=== PATIENT | female | born 1955 | race Caucasian/White ===

== ENCOUNTER 2017-02-05 12:35 | Emergency (ER) | payer BC ==
[~2017-02-05] VITALS: Ht 175.3 cm; Wt 88.4 kg
[~2017-02-05 12:35] MED LIST: ASPIRIN81 M1 PO; AUGMENTIN 875-1 EACH PO; BUTALB-ACETAMI1 EACH PO; Ecotrin PO; LOPRESSOR12.5 MG PO; LOPRESSOR25 MG PO; MELOXICAM15 MG PO; PROZAC20 MG PO; RELAFEN500 MG PO; ZOCOR20 MG PO
[2017-02-05 14:41] LABS: MCH 30.1 PG (29.0-34.0); MCHC 33.9 G/DL (30.0-36.0); MCV 88.6 FL (83-99); MEAN PLAT.VOLUME 11.4 uM^3 (9.5-12.4); PLATELET COUNT 216 K/uL (156-360); RBC DIS.WIDTH-CV 12.7 % (11.8-14.6); RED BLOOD COUNT 4.29 M/uL (3.80-5.20); WHITE BLOOD COUNT 7.3 K/uL (4.1-10.2)
[2017-02-05 14:53] LABS: CHLORIDE 111 mEq/L (99-109); POTASSIUM 3.7 mEq/L (3.7-5.4); SODIUM 143 mEq/L (136-147)
[2017-02-05 14:55] LABS: GLUCOSE 93 mg/dL (70-99)
[2017-02-05 14:57] LABS: ANION GAP 9 MEQ/L (2-14)
[2017-02-05 14:59] LABS: GFR ESTIMATE (CALCULATED) > 59 mL/min/
[2017-02-05 15:00] LABS: UREA NITROGEN (BUN) 14 mg/dL (9-23)
[2017-02-05] MEDS ORDERED: OSTEO BI-FLEX1 EAC1 PO (15:50)
[2017-02-05] MEDS ORDERED: FISH OIL 1,001000 M2 PO (15:51)
[2017-02-05] MEDS ORDERED: CENTRUM SILVER1 EAC3 PO (15:52)
[2017-02-05] MEDS ORDERED: CALCIUM 500 MG1 EACH PO (15:52)
[2017-02-05] MEDS ORDERED: RELAFEN500 M1 PO (15:54)
[2017-02-05] MEDS ORDERED: ELAVIL50 MG PO (15:55)
[2017-02-05] MEDS ORDERED: NASONEX17 GM BOTH NARES (15:57)
[2017-02-05] MEDS ORDERED: COZAAR25 MG PO (15:57)
[2017-02-05] MEDS ORDERED: SPRIX1 EACH BOTH NARES (15:58)
[2017-02-05] MEDS ORDERED: REGLAN10 MG PO (15:59)
[2017-02-05] MEDS ORDERED: FIORICET,ESG1 TABLET PO (17:32)
[2017-02-05 17:52] VITALS: BP 150/92
== END 2017-02-05 17:54 | disposition home or self-care (01) ==
LOC: EME 12:35
PROVIDERS: Physician Assistant
DX: G43.909 Migraine, unspecified, not intractable, without status migrainosus (principal); R11.2 Nausea with vomiting, unspecified
CPT/HCPCS: 70450; 71020; 80048; 85027; 93005; 99281; 99284; J1885; J2765; J3010; J7030

== ENCOUNTER 2017-02-08 07:07 | Emergency (ER) | payer BC ==
[~2017-02-08] VITALS: Ht 175.3 cm; Wt 88.9 kg
[~2017-02-08 07:07] MED LIST changes: +CALCIUM 500 MG1 EACH PO; +CENTRUM SILVER1 EAC3 PO; +COZAAR25 MG PO; +ELAVIL50 MG PO; +FIORICET,ESG1 TABLET PO; +FISH OIL 1,001000 M2 PO; +NASONEX17 GM BOTH NARES; +OSTEO BI-FLEX1 EAC1 PO; +REGLAN10 MG PO; +RELAFEN500 M1 PO; +SPRIX1 EACH BOTH NARES
[2017-02-08 08:10] LABS: ADD MIUA? NO; BILIRUBIN NEGATIVE; BLOOD NEGATIVE; COLOR STRAW ((YELLOW)); GLUCOSE (STRIP) NEGATIVE; KETONES NEGATIVE; LEUKOCYTES NEGATIVE; NITRITE NEGATIVE; PROTEIN (STRIP) NEGATIVE; SPECIFIC GRAVITY 1.004 (1.000-1.030); UROBILINOGEN 0.2 MG/DL (0.2-1.0)
[2017-02-08 09:30] VITALS: BP 142/90
== END 2017-02-08 09:47 | disposition home or self-care (01) ==
LOC: EME 07:07
PROVIDERS: Nurse Practitioner Family
DX: G43.909 Migraine, unspecified, not intractable, without status migrainosus (principal); E78.5 Hyperlipidemia, unspecified; I10 Essential (primary) hypertension; Z86.73 Personal history of transient ischemic attack (TIA), and cerebral infarction without residual deficits
CPT/HCPCS: 81003; 93005; 99281; 99285; J1100; J1200; J1885; J2765; J7030

== ENCOUNTER 2017-10-06 18:05 | Emergency (ER) | payer BC ==
[~2017-10-06] VITALS: Ht 175.3 cm; Wt 88.6 kg
[2017-10-06 18:48] LABS: HEMATOCRIT 41.2 % (36.0-46.0); HEMOGLOBIN 13.8 G/DL (11.9-15.5); MCH 30.3 PG (29.0-34.0); MCHC 33.5 G/DL (30.0-36.0); MCV 90.4 FL (83-99); PLATELET COUNT 256 K/uL (156-360); RBC DIS.WIDTH-CV 13.2 % (11.8-14.6); RBC DIS.WIDTH-SD 43.5 % (39-53); RED BLOOD COUNT 4.56 M/uL (3.80-5.20); WHITE BLOOD COUNT 7.3 K/uL (4.1-10.2)
[2017-10-06 19:03] LABS: ALBUMIN 4.4 G/DL (3.2-4.8); CHLORIDE 103 MEQ/L (99-109); POTASSIUM 3.8 MEQ/L (3.7-5.4); SODIUM 138 MEQ/L (136-147); TOTAL BILIRUBIN 0.3 MG/DL (0.0-1.0)
[2017-10-06 19:09] LABS: ALKALINE PHOSPHATASE 55 IU/L (3-129); ALT (GPT) 14 IU/L (3-49); AST (GOT) 14 IU/L (2-34); GFR ESTIMATE (CALCULATED) > 59 mL/min/; GLUCOSE 130 mg/dL (70-99); TOTAL PROTEIN 7.5 G/DL (6.4-8.3); UREA NITROGEN (BUN) 12 mg/dL (9-23)
[2017-10-06 21:59] LABS: APPEARANCE CLEAR ((CLEAR)); BILIRUBIN NEGATIVE; BLOOD NEGATIVE; COLOR YELLOW ((YELLOW)); GLUCOSE (STRIP) NEGATIVE; KETONES NEGATIVE; LEUKOCYTES TRACE; NITRITE NEGATIVE; PROTEIN (STRIP) NEGATIVE; SPECIFIC GRAVITY 1.014 (1.000-1.030); UROBILINOGEN 0.2 MG/DL (0.2-1.0)
[2017-10-06 22:18] LABS: BACTERIA RARE /HPF; EPITHELIAL CELLS RARE /HPF; HYALINE CASTS 0-5 /LPF; MUCUS TRACE /LPF; RED BLOOD CELLS 0-5 /HPF (0-5); UCUL ADDED? YES
[2017-10-06] MEDS ORDERED: ZOFRAN ODT4 MG PO (22:49)
[2017-10-06] MEDS ORDERED: FIORICET 50-301 EAC1 PO (23:03)
[2017-10-06] MEDS ORDERED: MOTRIN600 MG PO (23:03)
[2017-10-06 23:27] VITALS: BP 178/86
== END 2017-10-06 23:30 | disposition home or self-care (01) ==
LOC: EME 18:05
DX: R19.7 Diarrhea, unspecified (principal); R11.0 Nausea; E86.0 Dehydration; G43.909 Migraine, unspecified, not intractable, without status migrainosus; I10 Essential (primary) hypertension; E78.5 Hyperlipidemia, unspecified; F32.9 Major depressive disorder, single episode, unspecified; Z86.73 Personal history of transient ischemic attack (TIA), and cerebral infarction without residual deficits; Z88.5 Allergy status to narcotic agent; Z88.1 Allergy status to other antibiotic agents
CPT/HCPCS: 70450; 80053; 81003; 85027; 87086; 87493; 87506; 99281; 99285; J7030